=== PATIENT | female | born 1935 | race Caucasian/White ===

== ENCOUNTER → 2022-01-13 | Day surgery (SDC) | payer MEDICARE ==
[~2022-01-13] VITALS: Ht 162.6 cm; Wt 70.8 kg
[~2022-01-13] MED LIST: CARAFATE1 GM PO; CARVEDILOL12.5 MG PO; COZAAR 50MG TAB50 MG PO; ELIQUIS5 MG PO; FUROSEMIDE20 MG PO; POTASSIUM CHLO10 ME1 PO
== END | disposition home or self-care (01) ==
LOC: OR 09:36
DX: K21.00 Gastro-esophageal reflux disease with esophagitis, without bleeding (principal); I10 Essential (primary) hypertension; I48.0 Paroxysmal atrial fibrillation; D64.9 Anemia, unspecified; E11.9 Type 2 diabetes mellitus without complications; Z79.01 Long term (current) use of anticoagulants; Z79.899 Other long term (current) drug therapy; Z98.84 Bariatric surgery status
CPT/HCPCS: 82962; J2704; J7040